=== PATIENT | female | born 2000 | race Caucasian/White ===

== ENCOUNTER 2020-10-21 21:06 | Emergency (ER) | payer BC ==
[2020-10-21] MEDS ORDERED: Acetaminophen 500 MG TAB ONE (22:09)
[2020-10-21] MEDS ORDERED: Ibuprofen 200 MG TAB ONE (22:09)
== END 2020-10-21 22:15 | disposition home or self-care (01) ==
LOC: CSHERS 21:06
DX: R19.7 Diarrhea, unspecified (principal); R10.30 Lower abdominal pain, unspecified
CPT/HCPCS: 99283